=== PATIENT | female | born 1980 ===

== ENCOUNTER 2021-11-18 06:39 | Inpatient (IN) | payer SELFPAY ==
[2021-11-12 11:44] LABS: Hematocrit 36.3 % (30.3-42.9); Hemoglobin 12.2 gm/dl (10.1-14.3); Mean Corpuscular HGB Conc 34 % (30-34); Mean Corpuscular Volume 87 fl (79-97); Platelet Count 223 K/mm3 (140-440); Red Blood Count 4.15 M/mm3 (3.65-5.03); Red Cell Distribution Width 14.9 % (13.2-15.2)
[2021-11-18] MEDS ORDERED: LACTATED RINGERS 1,000 ML ONE ×2 (09:25→12:36)
[2021-11-18] MEDS ORDERED: OXYTOCIN DRIP 30 UNITS/500 ML BAG IV SCH ×2 (10:00→12:00)
[2021-11-18] MEDS ORDERED: METOCLOPRAMIDE 10 MG/2 ML INJ IV SCH (10:00)
[2021-11-18] MEDS ORDERED: FAMOTIDINE 20 MG/2 ML INJ IV SCH (10:00)
[2021-11-18] MEDS ORDERED: BICITRA ORAL LIQD 30ML PO SCH (10:00)
--- NOTE | 2021-11-18 10:18 | Anesthesia Consultation ---
Anesthesia Consult and Med Hx Date of service: 11/18/21 - Airway Anesthetic Teeth Evaluation: Good ROM Head & Neck: Adequate Mental/Hyoid Distance: Adequate Mallampati Class: Class II Intubation Access Assessment: Probably Good - Pulmonary Exam CTA: Yes - Cardiac Exam Cardiac Exam: RRR - Pre-Operative Health Status ASA Pre-Surgery Classification: ASA2 Proposed Anesthetic Plan: Spinal - Pulmonary Hx Asthma: No - Cardiovascular System Hx Hypertension: No - Central Nervous System Hx Seizures: No Hx Psychiatric Problems: No - Endocrine Hx Renal Disease: No Hx Hypothyroidism: No Hx Hyperthyroidism: No - Hematic Hx Anemia: No Hx Sickle Cell Disease: No - Other Systems Hx Alcohol Use: No Hx Cancer: No - Additional Comments Anesthesia Medical History Comments: Pt on lovenox prophylaxis d/t PE last . Last dose 11/16/21 2200 will resume 12 hours after surgery.
--- NOTE | 2021-11-18 10:18 | Anesthesia Day of Surgery ---
Anesthesia Day of Surgery - Day of Surgery Patient Examined: Yes Patient H&P Reviewed: Yes Patient is NPO: Yes
[2021-11-18 10:52] LABS: Basophils % (Auto) 0.3 % (0.0-1.8); Eosinophils # (Auto) 0.1 K/mm3 (0.0-0.4); Eosinophils % (Auto) 0.7 % (0.0-4.3); Hematocrit 37.1 % (30.3-42.9); Hemoglobin 12.5 gm/dl (10.1-14.3); Lymphocytes # (Auto) 1.7 K/mm3 (1.2-5.4); Lymphocytes % (Auto) 18.8 % (13.4-35.0); Mean Corpuscular HGB Conc 34 % (30-34); Mean Corpuscular Volume 88 fl (79-97); Monocytes # (Auto) 0.4 K/mm3 (0.0-0.8); Monocytes % (Auto) 4.8 % (0.0-7.3); Platelet Count 223 K/mm3 (140-440); Red Blood Count 4.22 M/mm3 (3.65-5.03); Red Cell Distribution Width 15.4 % (13.2-15.2)
[2021-11-18] MEDS: LACTATED RINGERS 1,000 ML IV SCH ×2 (11:10→11:34)
[2021-11-18] MEDS ORDERED: ceFAZolin/Water 2 GM/20 ML 2 GM/20 ML SYRINGE IV ONE (11:23)
[2021-11-18] MEDS ORDERED: LANOLIN/ZINC/DIMETHICONE (LANSINOH) 7 GM TP PRN (11:30)
--- NOTE | 2021-11-18 11:34 | History and Physical Report ---
History of Present Illness Date of examination: 11/18/21 Date of admission: 11/18/21 09:10 Chief complaint: at 39.0wks by LMP c/w U/S. care at [facility]. Pt admits to movement, denies LOF, VB or feeling ctx. Pt has been taking her Lovenox daily for prophylaxis with history of PE in her last preg delivered in [place]. labs with Rh positive, HIV neg, RPR neg and HepBsAg neg. GBS neg. Pt also desires permanent sterilization and tubal papers valid. Past History Past Medical History: other (PE in 2008 diagnosed with her last preg) Past Surgical History: section (x1) Family/Genetic History: none Social history: no significant social history - Obstetrical History Expected Date of Delivery: 11/25/21 Actual Gestation: 39 Week(s) 0 Day(s) : 2 Hx # Term Pregnancies: 1 Number of Living Children: 1 Medications and Allergies Allergies Allergy/AdvReac Type Severity Reaction Status Date / Time No Known Allergies Allergy Unverified 11/11/21 16:12 Home Medications Medication Instructions Recorded Confirmed Last Taken Type Enoxaparin Sodium [Lovenox] 40 mg SQ DAILY 11/11/21 11/11/21 Unknown History Vit-Fe Fumar-FA [ 1 tab PO QDAY 11/11/21 11/11/21 Unknown History Vitamin] Ibuprofen [Motrin] 800 mg PO Q8HR PRN 21 Days #40 11/18/21 Unknown Rx tablet oxyCODONE /ACETAMINOPHEN [Percocet 1 tab PO Q4HR PRN 21 Days #30 tab 11/18/21 Unknown Rx 5/325] Active Meds: Active Medications Acetaminophen (Acetaminophen 325 Mg Tab) 650 mg PO Q4H PRN PRN Reason: Fever >100.5/ZAMORA Citric Acid/Sodium Citrate (Bicitra Oral Liqd 30ml) 30 ml PO ONCE@1000 YANETH Stop: 11/18/21 18:00 Famotidine (Famotidine 20 Mg/2 Ml Inj) 20 mg IV ONCE@1000 YANETH Stop: 11/18/21 18:00 Ferrous Sulfate (Ferrous Sulfate 325 Mg Tab) 325 mg PO QDAY YANETH Hydrocortisone Acetate (Hydrocortisone 25 Mg Rectal Supp) 25 mg CO BID PRN PRN Reason: Hemorrhoids Lactated Ringer's (Lactated Ringers) 1,000 mls @ 2,250 mls/hr IV PREOP YANETH Stop: 11/19/21 10:27 Last Admin: 11/18/21 11:10 Dose: 2,250 mls/hr Oxytocin/Sodium Chloride (Pitocin/Ns 30 Unit/500ml) 30 units in 500 mls @ 0 mls/hr IV TITR YANETH; Protocol Oxytocin/Sodium Chloride (Pitocin/Ns 30 Unit/500ml) 30 units in 500 mls @ 40 mls/hr IV TITR YANETH; Protocol Ibuprofen (Ibuprofen 600 Mg Tab) 600 mg PO Q6H PRN PRN Reason: Pain, Mild (1-3) Ibuprofen (Ibuprofen 800 Mg Tab) 800 mg PO Q6H PRN PRN Reason: Pain, Moderate (4-6) Magnesium Hydroxide (Magnesium Hydroxide (Mom) Oral Liqd Udc) 30 ml PO QHS PRN PRN Reason: Constip Unrelieved By Senna Metoclopramide HCl (Metoclopramide 10 Mg/2 Ml Inj) 10 mg IV ONCE@1000 YANETH Stop: 11/18/21 18:00 Morphine Sulfate (Morphine 4 Mg/1 Ml Inj) 4 mg IV Q4H PRN PRN Reason: Pain , Severe (7-10) Multi-Ingredient Ointment (Lanolin/Zinc/Dimethicone (Lansinoh) 7 Gm) 1 applic TP PRN PRN PRN Reason: dryness/cracking Multivitamins/Iron/Calcium ( Gis83-Qa Fumarate-Folic Acid Vit Tab) 1 each PO QDAY YANETH Naloxone HCl (Naloxone 0.4 Mg/1 Ml Inj) 0.1 mg IV Q2MIN PRN PRN Reason: Res Rate </= 8 or 02 SAT < 92% Ondansetron HCl (Ondansetron 4 Mg/2 Ml Inj) 4 mg IV Q8H PRN PRN Reason: Nausea And Vomiting Oxycodone/Acetaminophen (Oxycodone /Acetaminophen 5-325mg Tab) 2 tab PO Q4H PRN PRN Reason: Pain, Moderate (4-6) Promethazine HCl (Promethazine 25 Mg Rect Supp) 25 mg CO Q6H PRN PRN Reason: N/V IF NPO AND NO IV ACCESS Senna (Sennosides 8.6 Mg Tab) 17.2 mg PO QHS PRN PRN Reason: Constipation Simethicone (Simethicone 80 Mg Chew Tab) 80 mg PO Q6H PRN PRN Reason: Gas pain Sodium Chloride (Sodium Chloride 0.9% 10 Ml Flush Syringe) 10 ml IV PRN NR Witch Clementine/Glycerin (Witch Clementine/ Glycerin Pad) 1 each TP PRN PRN PRN Reason: Hemorrhoids/cleansing/soothing Review of Systems All systems: negative (neg) - Vital Signs Vital signs: Vital Signs Temp Pulse Resp BP Pulse Ox 98.4 F 66 20 127/73 98 11/12/21 11:20 11/12/21 11:20 11/12/21 11:20 11/12/21 11:20 11/12/21 11:20 Temp Pulse Resp BP Pulse Ox 98.4 F 66 20 127/73 98 11/12/21 11:20 11/12/21 11:20 11/12/21 11:20 11/12/21 11:20 11/12/21 11:20 - Physical Exam Breasts: Positive: deferred Cardiovascular: Regular rate Lungs: Positive: Normal air movement Abdomen: Positive: soft Genitourinary (Female): Positive: normal external genitalia Vulva: both: normal Vagina: Positive: normal moisture Uterus: Positive: enlarged (non-tender, gravid) - Obstetrical FHR: category 1 Uterine Contraction Monitor Mode: External Cervical Dilatation: 0 Results Result Diagrams: 11/18/21 09:30 Abnormal lab results 11/18/21 Range/Units 09:30 RDW 15.4 H (13.2-15.2) % Seg Neutrophils % 75.4 H (40.0-70.0) % All other labs normal. Assessment and Plan Term preg with previous c/section x1 not in labor, history of PE and taking lovenox, last taken more than 24hrs ago 1. Admit for repeat c/section 2. Will resume lovenox med 12 hrs after surgery completed 3. Anesthesia aware. NICU notified. Plan of care explained to pt. All questions encouraged and answered.
[2021-11-18] MEDS ORDERED: ceFAZolin/STERILE WATER 2 GM/20 ML SYRINGE IV ONE (11:38)
[2021-11-18] MEDS ORDERED: KETOROLAC 30 MG/1 ML INJ ONE (11:55)
[2021-11-18] MEDS ORDERED: dexAMETHasone 20 MG/5 ML VIAL ONE (11:55)
[2021-11-18] MEDS ORDERED: ONDANSETRON 4 MG/2 ML INJ ONE (11:55)
[2021-11-18] MEDS ORDERED: BUPIVACAINE/PF (0.5%) 5 MG/1 ML 30 ML VIAL INFILTRATI ONE (11:55)
[2021-11-18] MEDS ORDERED: MORPHINE 4 MG/1 ML INJ IV PRN (12:00)
[2021-11-18] MEDS ORDERED: NALOXONE 0.4 MG/1 ML INJ IV PRN (12:00)
[2021-11-18] MEDS ORDERED: ONDANSETRON 4 MG/2 ML INJ IV PRN (12:00)
[2021-11-18] MEDS ORDERED: WITCH HAZEL/ GLYCERIN PAD TP PRN (12:00)
[2021-11-18] MEDS ORDERED: ACETAMINOPHEN 325 MG TAB PO PRN (12:00)
[2021-11-18] MEDS ORDERED: IBUPROFEN 600 MG TAB PO PRN (12:00)
[2021-11-18] MEDS ORDERED: PROMETHAZINE 25 MG RECT SUPP PR PRN (12:00)
[2021-11-18] MEDS ORDERED: oxyCODONE /ACETAMINOPHEN 5-325MG TAB PO PRN (12:00)
[2021-11-18] MEDS ORDERED: HYDROCORTISONE 25 MG RECTAL SUPP PR PRN (12:00)
[2021-11-18] MEDS ORDERED: WATER FOR IRRIG STERILE 1,500 ML BOTTLE IR ONE (12:05)
[2021-11-18] MEDS ORDERED: SODIUM CHLORIDE 0.9% IRR 1,500 ML BOTTLE IR ONE (12:05)
--- NOTE | 2021-11-18 14:34 | Procedure Note ---
OB Delivery Note - Delivery Date of Delivery: 11/18/21 Surgeon: ANA YOST Estimated blood loss: other (839cc per QBL by nurse) - Section Preop diagnosis: repeat (via midline scar), desires sterilization, o ther (H/O pulm embolus on lovenox, last received 11/16/21) Postop diagnosis: same section procedure: repeat low transverse (and lysis of adhesions), bilateral tubal ligation (via salpingectomy) Complications: none Narrative: Date: 11/18/21 Surgeon: Ana Yost MD Preop Dx: IUP at 39.0wks, previous c/section x1 with Pulm Embolus in 2008, now on lovenox, last taken 11/18/21; Midline scar with keloid; desires permanent sterilization Postop Dx: same and intraop adhesions; Early labor Procedure : Repeat Low transverse section and bilateral tubal ligation via salpingectomy Anesthesia: Spinal Intake: 1600cc Output: 100cc dark yellow urine throughout the case EBL: 839cc via QBL per nurse After the risks, benefits and alternatives of procedure discussed, patient signed consents and was taken to the operating room. Pt was given spinal anesthesia. After same was adequate, patient was prepped and draped in the usual sterile fashion. Calixto catheter in place and draining dark yellow urine. Pt was given prophylactic antibiotic per protocol and time out was done Pfannenstiel skin incision was made and taken sharply to the fascia and the incision extended using electrocautery. Superior edge of the fascia was grasped with tone clamps and the rectus muscle using blunt dissection and also using electrocautery. Lower portion of the fascia also using electrocautery. Rectus muscle in the midline and Peritoneal cavity entered sharply and intraabdominal adhesions sharply until the bladder was completely visualized. The bladder flap was created sharply using metzenbaum scissors. Very thin Lower uterine segment then entered transversely and amniotic sac entered using allys clamps. Uterine incision extended using bandage scissors. Infant delivered, bulb suctioned, cord clamped and baby handed to waiting pediatricians. Placenta then delivered completely and uterine cavity cleared of all clots and debri. The lower uterine segment with amniotic membranes coming off in fragments. The uterus was not exteriorized and closed in 2 layers using 0-monocryl suture in a running locked fashion and then an additional layer using figure of 8 suture. Excellent hemostasis noted. The gutters were cleared of clots and debri. Attention turned to left adnexa and the fallopian tube grasped with dionicio and avascular portion entered using electrocautery. The distal tubal segment with fimbriae removed and the remaining free ends doubly ligated using 0-vicryl. Excellent hemostasis noted. In a similar manner the right fallopian tube was identified and removed and hemostasis achieved. Surgicel placed along the uterine incision. The omentum adherent to anterior wall was partially enough to allow complete closure of peritoneal cavity incorporating the rectus muscle and scar tissue using 0-vicryl in a running fashion. Excellent hemostasis remains. The rectus fascia was then closed using 0-vicryl in a running fashion. The subcutaneous tissue was irrigated with normal saline and the reapproximated using 3-0 vicryl in a continuous fashion. The skin was closed with 4-0 monocryl suture subcutaneously and steristrips placed with pressure dressing. Sponge, lap, instrument and needle counts x4 were normal. Patient tolerated the procedure well and was taken to recovery room stable. Pathology: right and left distal tubal segments with fimbriae Findings: Viable female , APGARS 9/9 and weight 4030g. Normal uterus, tubes and ovaries. Anterior abdominal wall adhesions with omentum to uterine and bladder peritoneum. Pt in latent labor with very thin lower uterine segment - Infant B at 1 minute: 9 at 5 minutes: 9 Infant Gender: Female (wt 4030g; clear amniotic fluid.)
[2021-11-18 15:37] LABS: Hematocrit 35.7 % (30.3-42.9); Hemoglobin 12.1 gm/dl (10.1-14.3); Mean Corpuscular HGB Conc 34 % (30-34); Mean Corpuscular Volume 88 fl (79-97); Platelet Count 207 K/mm3 (140-440); Red Blood Count 4.07 M/mm3 (3.65-5.03); Red Cell Distribution Width 15.1 % (13.2-15.2)
[2021-11-18 15:48] LABS: Bilirubin,Urine NEG (Negative); Blood,Urine NEG (Negative); Color,Urine Yellow (Yellow); Mucus,Urine FEW /HPF; Urobilinogen,Urine < 2.0 mg/dL (<2.0)
[2021-11-18 16:03] LABS: Alanine Aminotransferase 8 units/L (7-56); BUN/Creatinine Ratio 23; Blood Urea Nitrogen 9 mg/dL (7-17); Calcium 8.4 mg/dL (8.4-10.2); Hemolysis Index 6
[2021-11-18 16:25] LABS: Uric Acid 3.7 mg/dL (3.5-7.6)
[2021-11-18] MEDS ORDERED: D5W/LACTATED RINGERS 1,000 ML IV SCH (19:00)
[2021-11-18] MEDS ORDERED: SENNOSIDES 8.6 MG TAB PO PRN (22:00)
[2021-11-18] MEDS ORDERED: MAGNESIUM HYDROXIDE (MOM) ORAL LIQD UDC PO PRN (22:00)
[2021-11-19] MEDS: PRENATAL VIT27-FE FUMARATE-FOLIC ACID VIT TAB PO SCH (09:50)
[2021-11-19] MEDS: FERROUS SULFATE 325 MG TAB PO SCH (09:50)
--- NOTE | 2021-11-19 11:40 | Post Anesthesia Evaluation ---
- Post Anesthesia Evaluation Patient Participated: Yes Airway Patent: Yes Stable Respiratory Function: Yes Nausea/Vomiting: No Temp > 96.8F: Yes Pain Manageable: Yes Adequeate Hydration: Yes Anesthesia Complications: No Block Receding Appropriately: Yes
--- NOTE | 2021-11-19 12:22 | Progress Note ---
Assessment and Plan A: POD #1 Hx of PE P: Follow Routine Post-Op orders Continue Lovenox 40mg Sub-Q qd Encourage increased ambulation Subjective - Subjective Date of service: 11/19/21 Patient reports: appetite normal, voiding normally, pain well controlled, ambulating normally [place]: doing well, bottle feeding (and ) Objective - Vital Signs Latest vital signs: Vital Signs Temp Pulse Resp BP BP Pulse Ox Pulse Ox 11/19/21 08:11 96 11/19/21 07:26 98.7 F 65 18 105/61 96 11/19/21 06:02 18 11/19/21 05:02 18 11/19/21 00:14 97.8 F 56 L 18 117/66 94 11/18/21 20:11 99 11/18/21 19:59 98.0 F 69 18 111/68 97 11/18/21 16:37 97 11/18/21 16:19 98.3 F 58 L 16 142/77 97 11/18/21 15:20 53 L 18 156/83 97 11/18/21 15:05 52 L 19 152/77 97 11/18/21 14:50 51 L 16 150/82 97 11/18/21 14:28 53 L 18 136/74 96 11/18/21 14:15 63 12 126/79 96 11/18/21 14:11 57 L 19 137/73 96 11/18/21 14:07 97.5 F L 54 L 18 128/74 96 Intake and Output 11/18/21 11/19/21 11/19/21 22:59 06:59 14:59 Intake Total 1250 440 720 Output Total 1600 1100 Balance -350 -660 720 Intake: IV 650 ceFAZolin 2 GM In NaCl 0. 100 9% 100 ml @ 200 mls/hr IV Q8H [facility] Rx#:[id number] Oral 240 440 480 Intake, Free Water 360 240 Output: Urine 1600 1100 Indwelling 50 Indwelling Catheter 950 200 Void 600 900 Other: Total, Intake Amount 240 240 360 Total, Output Amount 600 600 # Voids Void 1 1 - Exam Breasts: Present: normal Cardiovascular: Present: Regular rate Lungs: Present: Clear to auscultation, Normal air movement Abdomen: Present: normal appearance, soft, normal bowel sounds Uterus: Present: normal, firm, fundal height below umbilicus Extremities: Present: normal Incision: Present: normal, dry, dressed - Labs Labs: Abnormal lab results 11/18/21 11/18/21 11/18/21 Range/Units 15:12 15:18 Unknown WBC 11.7 H (4.5-11.0) K/mm3 Sodium 133 L (137-145) mmol/L Carbon Dioxide 19 L (22-30) mmol/L Creatinine 0.4 L (0.6-1.2) mg/dL Total Protein 6.1 L (6.3-8.2) g/dL Albumin 3.0 L (3.9-5) g/dL Urine pH 8.0 H (5.0-7.0)
[2021-11-19] MEDS: SIMETHICONE 80 MG CHEW TAB PO PRN ×2 (16:12→22:17)
[2021-11-19] MEDS: IBUPROFEN 800 MG TAB PO PRN ×2 (16:22→22:18)
[2021-11-19] MEDS ORDERED: ENOXAPARIN 40 MG/0.4 ML INJ SUB-Q SCH (20:00)
--- NOTE | 2021-11-20 10:02 | Progress Note ---
Assessment and Plan POD #2 A: S/P Repeat LTCS Hx DVT P: Continue monitoring D/C home today if stable Subjective - Subjective Date of service: 11/20/21 Principal diagnosis: s/p repeat LTCS Patient reports: appetite normal, voiding normally, pain well controlled, flatus, ambulating normally [place]: doing well, bottle feeding Objective - Vital Signs Latest vital signs: Vital Signs Temp Pulse Resp BP Pulse Ox Pulse Ox 11/20/21 09:36 99 11/20/21 08:26 98.6 F 78 18 126/76 99 11/20/21 00:40 98.1 F 68 18 142/72 98 11/19/21 23:18 18 11/19/21 22:18 18 11/19/21 20:00 99 11/19/21 15:59 98.4 F 72 18 125/69 99 Intake and Output 11/19/21 11/20/21 11/20/21 22:59 06:59 14:59 Intake Total 960 360 Output Total 450 Balance 510 360 Intake: Oral 480 360 Intake, Free Water 480 Output: Urine 450 Void 450 Other: Total, Intake Amount 240 360 Total, Output Amount 450 # Voids Void 1 - Exam Breasts: Present: normal Abdomen: Present: normal appearance, soft, normal bowel sounds Vulva: both: normal Uterus: Present: normal, firm, fundal height below umbilicus Extremities: Present: normal Incision: Present: normal, dry, intact
--- NOTE | 2021-11-20 10:09 | Discharge Summary ---
Providers - Providers Date of Admission: 11/18/21 09:10 Date of discharge: 11/20/21 Attending physician: ASHLEY YOST 11/18/21 11:17 Consult to Vendor Specialist [CONS] Routine Reason For Exam: Primary care physician: ASSISTANT TRACK COACH Hospitalization Reason for admission: section Delivery: Procedure: repeat low transverse Episiotomy: none Laceration: none Incision: normal, dry, intact Other procedures: none complications: none Discharge diagnosis: IUP at term delivered [place] baby: female Hospital course: Pt was admitted to [facility] for a repeat LTCS. She had a viable baby girl and had no pp complications. See H&p, delivery summary, and pp notes. Condition at discharge: Stable Disposition: 01 HOME / SELF CARE / HOMELESS Plan - Discharge Medications Prescriptions: Ibuprofen [Motrin] 800 mg PO Q8HR PRN 21 Days #40 tablet PRN Reason: Pain, Moderate (4-6) oxyCODONE /ACETAMINOPHEN [Percocet 5/325] 1 tab PO Q4HR PRN 21 Days #30 tab PRN Reason: Pain , Severe (7-10) - Provider Discharge Summary Additional instructions: [] Smoking cessation referral if applicable(refer to patient education folder for contact #) [] Refer to [facility]'s [facility] Booklet Call your doctor immediately for: * Fever > 100.5 * Heavy vaginal bleeding ( >1 pad per hour) * Severe persistent headache * Shortness of breath * Reddened, hot, painful area to leg or breast * Drainage or odor from incision. * Keep incision clean and dry at all times and follow doctor's instructions regarding bathing/showering - Follow up plan Follow up: PRIMARY CARE, [Primary Care Provider] - 14 Days Forms: [facility] Discharge Summary
[2021-11-20] MEDS: PRENATAL VIT27-FE FUMARATE-FOLIC ACID VIT TAB PO SCH (10:16)
[2021-11-20] MEDS: SIMETHICONE 80 MG CHEW TAB PO PRN (10:16)
[2021-11-20] MEDS: FERROUS SULFATE 325 MG TAB PO SCH (10:16)
[2021-11-20 13:50] VITALS: BP 119/72
== END 2021-11-20 14:10 | disposition home or self-care (01) | DRG 785 ==
LOC: APU 09:10 → OB 16:04
PROVIDERS: ADMIT Obstetrics & Gynecology; ATTEND Obstetrics & Gynecology
PROC: 0UB70ZZ Excision of Bilateral Fallopian Tubes, Open Approach (ICD-10-PCS; principal; 2021-11-18)
PROC: 10D00Z1 Extraction of Products of Conception, Low, Open Approach (ICD-10-PCS; 2021-11-18)
DX: O34.211 Maternal care for low transverse scar from previous cesarean delivery (principal); Z3A.39 39 weeks gestation of pregnancy; Z37.0 Single live birth; Z30.2 Encounter for sterilization; Z20.822 Contact with and (suspected) exposure to COVID-19
CPT/HCPCS: 36415; 80053; 81001; 83615; 84550; 85025; 85027; 86592; 86850; 86900; 86901; 88302; G0378; J3490; J7121; J0690; J1100; J1650; J1885; J2405; J2765; J7120; U0003